=== PATIENT | female | born 1970 | race Caucasian/White ===

== ENCOUNTER 2024-12-23 15:41 | Inpatient (IN) ==
--- NOTE | 2024-12-23 16:08 | Emergency Department Note ---
Impression & Plan Pulmonary embolism, Embolism, pulmonary with infarction, Upper back pain on right side ED Provider Note HISTORY OF PRESENT ILLNESS: Patient is a 54-year-old female presenting with chest pain and shortness of breath. Patient reports that at 2 PM she acutely developed pain in her right posterior lower rib cage and developed some shortness of breath. Reports the pain now seems to radiate diffusely across her chest. It is continuous but seems to be worse when she takes a deep breath. She denies any DVT or PE history. She does report she is on hormone replacements, including estradiol, for menopause. She is not on any anticoagulation or antiplatelet therapies. Patient is from the [facility] and had her gallbladder removed at [facility] 1.5 weeks ago. She states that she is up in this area for work and was trying to drive home from [place] to [place] but her pain became too much, prompting her to stop at the [facility] emergency department. She had not taken anything for the pain prior to coming to the ER. Denies any nausea or vomiting. Denies any recent fevers. Denies any dysuria or hematuria. She locates the pain to the right lower posterior rib cage and CVA region. ROS: as above PHYSICAL EXAM: Constitutional: Patient appears in no acute distress. Patient is uncomfortable appearing in bed and continues to shift uncomfortably. HENT: Head: Normocephalic and atraumatic. Eyes: EOMI, PERRL Mouth/Throat: Mucous membranes moist. Neck: Trachea midline. Neck supple. Cardiovascular: RRR, No murmurs, rubs or gallops. Intact distal pulses. Pulmonary/Chest: No respiratory distress. Breath sounds clear and equal bilaterally. No wheezes or rales. Abdominal: Abdomen soft, no tenderness, rebound or guarding. Back: No midline spinal tenderness, no paraspinal tenderness, no CVA tenderness. Musculoskeletal: No edema, tenderness or deformity noted. Skin: Warm and dry. No rash, erythema, pallor or cyanosis Psychiatric: Appropriate mood and affect for situation. Neurological: Alert and keenly responsive. CN II-XII grossly intact, moving all extremities equally and fully. MDM: - Vitals signs showed tachypnea - History obtained via patient. History as above. - Chronic conditions affecting care: HTN - Differential diagnoses include, but are not limited to: Congestive heart failure; acute coronary syndrome; COPD/asthma exacerbation; pulmonary edema; pulmonary embolism; pneumonia; pneumothorax; viral syndrome - Order placed for continuous cardiac monitoring. At this time, monitor showed rate of 74 bpm with normal sinus rhythm, per my interpretation. - External medical records reviewed. - EKG image interpreted by myself showed normal sinus rhythm. Rate 73 BPM. QT 354. No acute ischemic changes. Noted to have significant artifact at baseline secondary to her inability to sit still. - Laboratory workup interpreted by myself showed slight leukocytosis (WBC 11.97); normal PT/INR; stable electrolytes; normal troponin - CXR image reviewed by myself is negative for pneumonia, per my interpretation. - Given patient's pinpoint pain on her right lower chest and use of hormone replacement therapy in the setting of her recent surgery, CT of the chest was obtained to rule out pulmonary embolism. - Patient initially given 4 mg IV morphine and 4 mg IV Zofran for symptomatic management. However, she is still writhing in pain. She is given 0.5 mg IV Dilaudid and taken to CT scan. - CTA chest showed acute right lower lobe pulmonary embolus with mild heart strain. Noted to have a right posterior lower lobe infarct. - CT abdomen/pelvis with IV contrast negative for acute abnormality. Noted to have moderate amounts of stool in the colon. - Heparin bolus and drip ordered and initiated. - Discussion was had with case liner about patient's case and need for admission - Hospitalist consulted for admission [facility]. I have personally spent 62 minutes of critical care time in the direct management of this patient. This includes bedside care, interpretation of diagnostic studies, and testing, discussion with consultants, patient, and family members, and other required patient management activities. This 62 minutes is in excess of all separately billable procedures. ASSESSMENT AND PLAN: Diagnosis: Pulmonary embolism; pulmonary infarct; right heart strain; right posterior upper back pain Plan: Admit Past Med/Surg History Problem List (Updated 12/23/24 @ 18:05 by Bhavya Castellon MD) Upper back pain on right side (Acute) Embolism, pulmonary with infarction (Acute) Pulmonary embolism (Acute) Social History Smoking Status: Never smoker Preferred Language: German Feels Safe at Home: Yes Results & Data (ED) Vital Signs Vital Signs - 24 hr 12/23/24 15:43 12/23/24 15:43 12/23/24 16:10 Temperature 37.1 C Temperature Source Oral Pulse Rate 80 75 Pulse Rate [Apical] Respiratory Rate 30 H Respiratory Effort / Characteristics Gasping/Agonal Gasping/Agonal Respiratory Depth Shallow Shallow Blood Pressure 130/79 Blood Pressure [Left Arm] Blood Pressure Mean 96 Blood Pressure Mean [Left Arm] Pulse Oximetry 98 Oxygen Delivery Method Room Air Sepsis Recent Fever Within 48 Hours No Sepsis New/Unexplained Change in Mental Status No Sepsis Action Taken by Nursing No Action Required 12/23/24 16:51 12/23/24 16:51 12/23/24 16:51 Temperature Temperature Source Pulse Rate Pulse Rate [Apical] 72 Respiratory Rate 18 Respiratory Effort / Characteristics Respiratory Depth Blood Pressure Blood Pressure [Left Arm] 107/60 Blood Pressure Mean Blood Pressure Mean [Left Arm] 75 Pulse Oximetry 99 99 Oxygen Delivery Method Room Air Room Air Sepsis Recent Fever Within 48 Hours Sepsis New/Unexplained Change in Mental Status Sepsis Action Taken by Nursing 12/23/24 17:49 12/23/24 17:50 Temperature Temperature Source Pulse Rate 73 Pulse Rate [Apical] Respiratory Rate 15 Respiratory Effort / Characteristics Respiratory Depth Blood Pressure 108/62 Blood Pressure [Left Arm] Blood Pressure Mean 81 Blood Pressure Mean [Left Arm] Pulse Oximetry 94 Oxygen Delivery Method Room Air Sepsis Recent Fever Within 48 Hours Sepsis New/Unexplained Change in Mental Status Sepsis Action Taken by Nursing Laboratory Data 12/23/24 16:05 12/23/24 16:05 Lab Results 12/23/24 Range/Units 16:05 WBC 11.97 H (4.8-10.8) K/ul RBC 3.79 L (4.20-5.40) M/uL Hgb 11.7 L (12.0-16.0) g/dl Hct 34.9 L (37.0-47.0) % MCV 92.1 (80.0-100.0) fL MCH 30.9 (25.0-34.0) pg MCHC 33.5 (32.0-36.0) g/dL RDW Std Deviation 44.0 (36.4-46.3) fL RDW Coeff of Demetrio 13.1 (11.5-14.5) % Plt Count 329 (130-400) K/uL MPV 9.1 L (9.4-12.4) fL Immature Gran % (Auto) 0.3 % Neut % (Auto) 75.4 % Lymph % (Auto) 16.0 % [place] % (Auto) 7.3 % Eos % (Auto) 0.7 % Baso % (Auto) 0.3 % Neut # (Auto) 9.03 H (1.40-6.50) K/uL Lymph # (Auto) 1.92 (1.20-3.40) K/uL [place] # (Auto) 0.87 H (0.11-0.59) K/uL Eos # (Auto) 0.08 (0.00-0.50) K/uL Baso # (Auto) 0.04 (0.00-0.20) K/uL Immature Gran # (Auto) 0.03 (0.01-0.20) K/uL PT 10.5 (9.0-12.0) Seconds INR 1.0 (0.9-1.1) APTT 28 (21-31) Seconds PTT Ratio 1.0 Sodium 137 (136-145) mmol/L Potassium 3.9 (3.5-5.1) mmol/L Chloride 106 (98-107) mmol/L Carbon Dioxide 25 (21-32) mmol/L Anion Gap 6 (3-11) BUN 17 (6-23) mg/dl Creatinine 0.84 (0.6-1.2) mg/dl Est Cr Clr Drug Dosing 88.4 ml/min eGFR 83.04 BUN/Creatinine Ratio 20.2 H (10-20) Glucose 115 H (70-99(Fasting)) mg/dl Calcium 9.4 (8.6-10.3) mg/dl Total Bilirubin 0.6 (0.2-1.0) mg/dl AST 20 (13-39) U/L ALT 50 (7-52) U/L Alkaline Phosphatase 110 H (34-104) U/L Troponin I High Sens < 2.3 (0-14) pg/ml B-Natriuretic Peptide 34 (0-100) pg/ml Total Protein 7.1 (6.0-8.3) gm/dl Albumin 3.9 (3.4-5.0) gm/dl Globulin 3.2 (2.5-4.0) gm/dl Albumin/Globulin Ratio 1.2 (0.9-2) Administered Medications Discontinued Medications Hydromorphone HCl (Hydromorphone Inj 0.5 Mg/0.5 Ml Syr) 0.5 mg IV NOW STA Stop: 12/23/24 16:58 Last Admin: 12/23/24 17:18 Dose: 0.5 mg Documented By: PAULINO Acetaminophen (Ofirmev) 1,000 mg in 100 mls @ 400 mls/hr IV NOW STA Stop: 12/23/24 17:09 Last Infusion: 12/23/24 17:35 Dose: Infused Documented By: Admin: 12/23/24 17:18 Dose: 400 mls/hr Documented By: PAULINO Ioversol (Optiray 320 125ml) 119 ml IV ONCE ONE Stop: 12/23/24 17:10 Last Admin: 12/23/24 17:10 Dose: 119 ml Documented By: ABBEY Morphine Sulfate (Morphine Sulfate 4 Mg/Ml 1 Ml Carp\Vial) 4 mg IV NOW STA Stop: 12/23/24 16:08 Last Admin: 12/23/24 16:10 Dose: 4 mg Documented By: DAYANA Ondansetron HCl (Ondansetron Inj 2 Mg/Ml 2 Ml Vial) 4 mg IV NOW STA Stop: 12/23/24 16:21 Last Admin: 12/23/24 16:50 Dose: 4 mg Documented By: PAULINO Imaging Data Radiologist's Impression: Chest X-Ray 12/23/24 15:46 Clinical History: Chest pain Technique: A frontal view of the chest was obtained Findings: There are no confluent pulmonary infiltrates. The heart size is within normal limits. No pleural effusion or pneumothorax is seen. There is no definite pulmonary nodule. There is a cervical fusion Impression: No active disease Electronically signed by Marcelino Ruth 12-23-2024 4:38 PM Abdomen/Pelvis CT 12/23/24 16:20 EXAM: CT Abdomen and Pelvis With Intravenous Contrast INDICATION: Postsurgical lung pain and shortness of breath. TECHNIQUE: Axial computed tomography images of the abdomen and pelvis with intravenous contrast. Sagittal and coronal reformatted images were created and reviewed. This CT exam was performed using one or more of the following dose reduction techniques: automated exposure control, adjustment of the mA and/or kV according to patient size, and/or use of iterative reconstruction technique. CONTRAST: 119ml of Optiray 320 was administered intravenously. COMPARISON: No relevant prior studies available. FINDINGS: Limitations: None. Lung bases: No abnormality noted. Pleural space: Groundglass opacity noted in the posterior right costophrenic sulcus. Heart: No abnormality noted. Mediastinum: No abnormality noted. ABDOMEN: Liver: Normal size and contour. Hypodense typical of steatosis. No mass or ductal dilation. Gallbladder and bile ducts: Cholecystectomy. No ductal dilation or stone noted. Simple there is trace intrahepatic biliary dilatation likely within normal limits postcholecystectomy. Smooth hepatic contour. No mass. Bilateral renal cysts. No follow-up of these simple cysts is necessary. Pancreas: Homogeneous enhancement. No mass, inflammation or ductal dilation. Spleen: No significant abnormality noted. Adrenals: No significant abnormality noted. Kidneys and ureters: Normal enhancement. No mass, hydronephrosis or visualized stone. Stomach and bowel: Moderate amounts of stool scattered throughout the colon. The right colon is patulous with the cecum noted in the left midabdomen. Normal position of the duodenal jejunal junction. Postoperative changes of the stomach. Staple lines are well-defined without adjacent inflammation or fluid. No obstruction. No inflammatory process or thickening noted. PELVIS: Appendix: No findings to suggest acute appendicitis. Bladder: No filling defects to suggest mass or large stone. No inflammation. Reproductive: Unenlarged fibroid uterus. ABDOMEN and PELVIS: Intraperitoneal space: No free air. No significant fluid collection. Bones/joints: Degenerative changes noted throughout the spine. No acute osseous abnormality seen. Soft tissues: No significant abnormality noted. Vasculature: No abdominal aortic aneurysm. Lymph nodes: No pathologically enlarged lymph nodes. IMPRESSION: 1. No acute abnormality in the abdomen or pelvis. 2. Moderate amounts of stool in the patulous colon with the right colon a in the mid abdomen and the cecum to the left of midline. 3. Right posterior costophrenic basilar infiltrate could reflect infarct given the patient has a right lower lobe pulmonary embolus. Infectious pneumonia not excluded. 4. Uterine fibroids. ACT 112: N/A Electronically signed by Gisselle Peralta 12-23-2024 5:37 PM Chest CTA 12/23/24 16:20 EXAM: CT Angiography Chest With Intravenous Contrast INDICATION: Recent surgery. Shortness of breath. Right lung pain. TECHNIQUE: Axial computed tomographic angiography images of the chest with intravenous contrast. Sagittal and coronal reformatted images were created and reviewed. This CT exam was performed using one or more of the following dose reduction techniques: automated exposure control, adjustment of the mA and/or kV according to patient size, and/or use of iterative reconstruction technique. MIP reconstructed images were created and reviewed. CONTRAST: 119ml of Optiray 320 was administered intravenously. COMPARISON: No relevant prior studies available. FINDINGS: Pulmonary arteries: There is an acute pulmonary embolus in a segmental medial right lower lobe branch. No saddle embolus. Aorta: No acute change noted. No thoracic aortic aneurysm or dissection. Lungs and pleural spaces: There is groundglass and consolidative infiltrate in the right posterior costophrenic sulcus. No significant effusion. No pneumothorax. Heart: Mild cardiomegaly with slight dilatation of the right ventricle. No pericardial effusion. Bones/joints: No acute or atypical chronic changes. Soft tissues: No abnormality noted. Lymph nodes: No abnormality noted. No enlarged lymph nodes. IMPRESSION: 1. The study is positive for acute right lower lobe pulmonary embolus. Mild right heart strain. 2. Right posterior lower lobe infarct or pneumonia not excluded. ACT 112: N/A Electronically signed by Gisselle Peralta 12-23-2024 5:31 PM Discharge Plan Visit Data Chief Complaint: Chest Pain Stated Complaint: CHEST PPAIN, SOB, BACK PAIN ED Provider: Bhavya Castellon Discharge Problem: Pulmonary embolism, Embolism, pulmonary with infarction, Upper back pain on right side Forms Stand Alone Forms: [facility] Referrals Referrals: PCP,NO [Physician] -
[2024-12-23] MEDS: MoRPHine SULFATE 4 MG/ML 1 ML CARP\\VIAL IV STA (16:10)
[2024-12-23 16:22] LABS: Basophils # (auto) 0.04 K/uL (0.00-0.20); Basophils % (auto) 0.3 %; Eosinophils # (auto) 0.08 K/uL (0.00-0.50); Eosinophils % (auto) 0.7 %; Hematocrit (blood only) 34.9 % (37.0-47.0); Hemoglobin 11.7 g/dl (12.0-16.0); Immature Granulocytes # (auto) 0.03 K/uL (0.01-0.20); Immature Granulocytes % (auto) 0.3 %; Lymphocytes # (auto) 1.92 K/uL (1.20-3.40); Mean Corpuscular Hemoglobin 30.9 pg (25.0-34.0); Mean Corpuscular Hgb Conc 33.5 g/dL (32.0-36.0); Mean Corpuscular Volume 92.1 fL (80.0-100.0); Mean Platelet Volume 9.1 fL (9.4-12.4); Monocytes # (auto) 0.87 K/uL (0.11-0.59); Monocytes % (auto) 7.3 %; Neutrophils # (auto) 9.03 K/uL (1.40-6.50); Neutrophils % (auto) 75.4 %; Platelet Count 329 K/uL (130-400); RDW Coefficient of Variation 13.1 % (11.5-14.5); Red Blood Count 3.79 M/uL (4.20-5.40); White Blood Count 11.97 K/ul (4.8-10.8)
[2024-12-23 16:35] LABS: Alanine Aminotransferase 50 U/L (7-52); Albumin Globulin Ratio 1.2 (0.9-2); Albumin Level 3.9 gm/dl (3.4-5.0); Alkaline Phosphatase 110 U/L (34-104); Anion Gap 6 (3-11); Aspartate Aminotransferase 20 U/L (13-39); BUN Creatinine Ratio 20.2 (10-20); Bilirubin,Total 0.6 mg/dl (0.2-1.0); Blood Urea Nitrogen 17 mg/dl (6-23); Calcium 9.4 mg/dl (8.6-10.3); Carbon Dioxide 25 mmol/L (21-32); Chloride 106 mmol/L (98-107); Creatinine Clr Calc Pharmacy 88.4 ml/min; Globulin 3.2 gm/dl (2.5-4.0); Glucose 115 mg/dl (70-99(Fasting)); Potassium 3.9 mmol/L (3.5-5.1); Sodium 137 mmol/L (136-145); Total Protein 7.1 gm/dl (6.0-8.3)
--- NOTE | 2024-12-23 16:40 | XRay Report ---
Clinical History: Chest pain Technique: A frontal view of the chest was obtained Findings: There are no confluent pulmonary infiltrates. The heart size is within normal limits. No pleural effusion or pneumothorax is seen. There is no definite pulmonary nodule. There is a cervical fusion Impression: No active disease Electronically signed by Marcelino Ruth 12-23-2024 4:38 PM
[2024-12-23 16:41] LABS: Troponin I High Sensitivity < 2.3 pg/ml (0-14)
[2024-12-23 16:46] LABS: Partial Thromboplastin Time 28 Seconds (21-31); Prothrombin Time 10.5 Seconds (9.0-12.0)
[2024-12-23] MEDS: ONDANSETRON INJ 2 MG/ML 2 ML VIAL IV STA (16:50)
[2024-12-23] MEDS: OPTIRAY 320 125ml IV ONE (17:10)
[2024-12-23] MEDS: HYDROmorphone INJ 0.5 MG/0.5 ML SYR IV STA (17:18)
[2024-12-23] MEDS: ACETAMINOPHEN 1,000 MG/100 ML VIAL IV STA (17:18)
--- NOTE | 2024-12-23 17:32 | CT Scan Report ---
EXAM: CT Angiography Chest With Intravenous Contrast INDICATION: Recent surgery. Shortness of breath. Right lung pain. TECHNIQUE: Axial computed tomographic angiography images of the chest with intravenous contrast. Sagittal and coronal reformatted images were created and reviewed. This CT exam was performed using one or more of the following dose reduction techniques: automated exposure control, adjustment of the mA and/or kV according to patient size, and/or use of iterative reconstruction technique. MIP reconstructed images were created and reviewed. CONTRAST: 119ml of Optiray 320 was administered intravenously. COMPARISON: No relevant prior studies available. FINDINGS: Pulmonary arteries: There is an acute pulmonary embolus in a segmental medial right lower lobe branch. No saddle embolus. Aorta: No acute change noted. No thoracic aortic aneurysm or dissection. Lungs and pleural spaces: There is groundglass and consolidative infiltrate in the right posterior costophrenic sulcus. No significant effusion. No pneumothorax. Heart: Mild cardiomegaly with slight dilatation of the right ventricle. No pericardial effusion. Bones/joints: No acute or atypical chronic changes. Soft tissues: No abnormality noted. Lymph nodes: No abnormality noted. No enlarged lymph nodes. IMPRESSION: 1. The study is positive for acute right lower lobe pulmonary embolus. Mild right heart strain. 2. Right posterior lower lobe infarct or pneumonia not excluded. ACT 112: N/A Electronically signed by Gisselle Peralta 12-23-2024 5:31 PM
--- NOTE | 2024-12-23 17:40 | CT Scan Report ---
EXAM: CT Abdomen and Pelvis With Intravenous Contrast INDICATION: Postsurgical lung pain and shortness of breath. TECHNIQUE: Axial computed tomography images of the abdomen and pelvis with intravenous contrast. Sagittal and coronal reformatted images were created and reviewed. This CT exam was performed using one or more of the following dose reduction techniques: automated exposure control, adjustment of the mA and/or kV according to patient size, and/or use of iterative reconstruction technique. CONTRAST: 119ml of Optiray 320 was administered intravenously. COMPARISON: No relevant prior studies available. FINDINGS: Limitations: None. Lung bases: No abnormality noted. Pleural space: Groundglass opacity noted in the posterior right costophrenic sulcus. Heart: No abnormality noted. Mediastinum: No abnormality noted. ABDOMEN: Liver: Normal size and contour. Hypodense typical of steatosis. No mass or ductal dilation. Gallbladder and bile ducts: Cholecystectomy. No ductal dilation or stone noted. Simple there is trace intrahepatic biliary dilatation likely within normal limits postcholecystectomy. Smooth hepatic contour. No mass. Bilateral renal cysts. No follow-up of these simple cysts is necessary. Pancreas: Homogeneous enhancement. No mass, inflammation or ductal dilation. Spleen: No significant abnormality noted. Adrenals: No significant abnormality noted. Kidneys and ureters: Normal enhancement. No mass, hydronephrosis or visualized stone. Stomach and bowel: Moderate amounts of stool scattered throughout the colon. The right colon is patulous with the cecum noted in the left midabdomen. Normal position of the duodenal jejunal junction. Postoperative changes of the stomach. Staple lines are well-defined without adjacent inflammation or fluid. No obstruction. No inflammatory process or thickening noted. PELVIS: Appendix: No findings to suggest acute appendicitis. Bladder: No filling defects to suggest mass or large stone. No inflammation. Reproductive: Unenlarged fibroid uterus. ABDOMEN and PELVIS: Intraperitoneal space: No free air. No significant fluid collection. Bones/joints: Degenerative changes noted throughout the spine. No acute osseous abnormality seen. Soft tissues: No significant abnormality noted. Vasculature: No abdominal aortic aneurysm. Lymph nodes: No pathologically enlarged lymph nodes. IMPRESSION: 1. No acute abnormality in the abdomen or pelvis. 2. Moderate amounts of stool in the patulous colon with the right colon a in the mid abdomen and the cecum to the left of midline. 3. Right posterior costophrenic basilar infiltrate could reflect infarct given the patient has a right lower lobe pulmonary embolus. Infectious pneumonia not excluded. 4. Uterine fibroids. ACT 112: N/A Electronically signed by Gisselle Peralta 12-23-2024 5:37 PM
[2024-12-23] MEDS ORDERED: Heparin IV Adult Wt-Based Standard w/ INITIAL Bolus Protocol IV STA (17:56)
--- NOTE | 2024-12-23 18:20 | History & Physical Report ---
Date of Service December 23, 2024 Assessment & Plan (1) Embolism, pulmonary with infarction: Plan: Multiple risk factors for PE - patient with recent cholecystectomy and on HRT with estradiol and medroxyprogesterone. CTA PE protocol with signs of right heart strain. Started heparin gtt. ECHO ordered. Likely can transition to DOAC 12/24. Tylenol scheduled, Dilaudid 0.5 mg Q3H PRN Zofran PRN for nausea, QTC 389 on admit ECHO ordered heparin gtt for now, plan for transition to DOAC pending ECHO (2) Anxiety: Plan: Baseline anxiety on Prozac and Buspar for maintenance. Hydroxyzine 50 mg PRN for anxiety. Doxepin 10 mg PRN for sleep. Ordered home meds. (3) Postmenopausal HRT (hormone replacement therapy): Plan: Will likely need to d/c HRT. (4) S/P cholecystectomy: Plan: Incisions c/d/i. Patient with signs of constipation of CT A&P. Schedule MiraLax. (5) Leukocytosis: Plan: Likely reactive. Will trend. Plan Code status: full DVT ppx: heparin gtt FENGI: regular diet Dispo: PCU/Tele History of Present Illness Chief Complaint: CP Primary Care Provider: LIZZYMIKE LEON 54 y/o female on HRT with a PMHx of anxiety presented with chest pain. Patient was driving from [place] to [employer] when she experienced acute onset severe chest pain. 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 She also had significant shortness of breath and nausea. Symptoms have improved with medication, but it is still present. Still having significant pain with deep breaths. Patient had her gallbladder removed recently as well. No leg swelling or pain in the legs. ED work up significant for right lower lobe PE and mild heart strain. Hospitalist team consulted for admission. Allergies Allergy/AdvReac Type Severity Reaction Status Date / Time azithromycin Allergy Severe Abdominal Unverified 12/23/24 18:43 Pain Sulfa (Sulfonamide Allergy Severe Abdominal Unverified 12/23/24 18:43 Antibiotics) Pain codeine AdvReac Severe Anxiety Unverified 12/23/24 18:43 and Paranoid Home Medications Medication Instructions Recorded Confirmed Type acetaminophen 500 mg tablet 500 mg PO Q6H PRN Pain 12/23/24 12/23/24 History buspirone 5 mg tablet 2.5 mg PO BID 12/23/24 12/23/24 History cetirizine 10 mg tablet (Zyrtec) 10 mg PO DAILY 12/23/24 12/23/24 History estradiol 0.5 mg tablet 0.5 mg PO HS 12/23/24 12/23/24 History fluoxetine 40 mg capsule 40 mg PO QAM 12/23/24 12/23/24 History medroxyprogesterone 2.5 mg tablet 2.5 mg PO HS 12/23/24 12/23/24 History multivitamin 1 tab PO DAILY 12/23/24 12/23/24 History Past Med/Surg History Problem List (Updated 12/23/24 @ 19:13 by Alba Glover MD) Leukocytosis Anxiety S/P cholecystectomy Postmenopausal HRT (hormone replacement therapy) Upper back pain on right side (Acute) Embolism, pulmonary with infarction (Acute) Pulmonary embolism (Acute) Social History Smoking Status: Never smoker Preferred Language: Tongan Feels Safe at Home: Yes Review of Systems 2 Review of Systems: See HPI Physical Exam 2 Physical Exam: Gen: appears to be in pain, but NAD HEENT: AT NC MMM Resp: CTAB no wheezing, pain present with inspiration, no increased work of breathing CV: RRR no m/r/g clinically well perfused Abd: soft, non-distended, incisions c/d/i MSK: no obvious deformities Skin: no rashes or bruising Neuro: alert and oriented Psych: appropriate mood and affect Results & Data Results & Data Vital Signs (Past 12 Hours) Vital Signs Temp Pulse Pulse Resp BP BP Pulse Ox 12/23/24 17:50 73 15 94 12/23/24 17:49 108/62 12/23/24 16:51 99 12/23/24 16:51 72 18 107/60 99 12/23/24 16:51 12/23/24 16:10 75 12/23/24 15:43 37.1 C 80 30 H 130/79 98 O2 Del Method 12/23/24 17:50 Room Air 12/23/24 17:49 12/23/24 16:51 Room Air 12/23/24 16:51 12/23/24 16:51 Room Air 12/23/24 16:10 12/23/24 15:43 Room Air Laboratory Results 12/23/24 16:05 12/23/24 16:05 Diagnostic Findings Chest X-Ray 12/23/24 15:46 Findings: There are no confluent pulmonary infiltrates. The heart size is within normal limits. No pleural effusion or pneumothorax is seen. There is no definite pulmonary nodule. There is a cervical fusion Impression: No active disease Abdomen/Pelvis CT 12/23/24 16:20 FINDINGS: Limitations: None. Lung bases: No abnormality noted. Pleural space: Ground glass opacity noted in the posterior right costophrenic sulcus. Heart: No abnormality noted. Mediastinum: No abnormality noted. ABDOMEN: Liver: Normal size and contour. Hypodense typical of steatosis. No mass or ductal dilation. Gallbladder and bile ducts: Cholecystectomy. No ductal dilation or stone noted. Simple there is trace intrahepatic biliary dilatation likely within normal limits postcholecystectomy. Smooth hepatic contour. No mass. Bilateral renal cysts. No follow-up of these simple cysts is necessary. Pancreas: Homogeneous enhancement. No mass, inflammation or ductal dilation. Spleen: No significant abnormality noted. Adrenals: No significant abnormality noted. Kidneys and ureters: Normal enhancement. No mass, hydronephrosis or visualized stone. Stomach and bowel: Moderate amounts of stool scattered throughout the colon. The right colon is patulous with the cecum noted in the left midabdomen. Normal position of the duodenal jejunal junction. Postoperative changes of the stomach. Staple lines are well-defined without adjacent inflammation or fluid. No obstruction. No inflammatory process or thickening noted. PELVIS: Appendix: No findings to suggest acute appendicitis. Bladder: No filling defects to suggest mass or large stone. No inflammation. Reproductive: Un-enlarged fibroid uterus. ABDOMEN and PELVIS: Intraperitoneal space: No free air. No significant fluid collection. Bones/joints: Degenerative changes noted throughout the spine. No acute osseous abnormality seen. Soft tissues: No significant abnormality noted. Vasculature: No abdominal aortic aneurysm. Lymph nodes: No pathologically enlarged lymph nodes. IMPRESSION: 1. No acute abnormality in the abdomen or pelvis. 2. Moderate amounts of stool in the patulous colon with the right colon a in the mid abdomen and the cecum to the left of midline. 3. Right posterior costophrenic basilar infiltrate could reflect infarct given the patient has a right lower lobe pulmonary embolus. Infectious pneumonia not excluded. 4. Uterine fibroids. Chest CTA 12/23/24 16:20 FINDINGS: Pulmonary arteries: There is an acute pulmonary embolus in a segmental medial right lower lobe branch. No saddle embolus. Aorta: No acute change noted. No thoracic aortic aneurysm or dissection. Lungs and pleural spaces: There is ground glass and consolidative infiltrate in the right posterior costophrenic sulcus. No significant effusion. No pneumothorax. Heart: Mild cardiomegaly with slight dilatation of the right ventricle. No pericardial effusion. Bones/joints: No acute or atypical chronic changes. Soft tissues: No abnormality noted. Lymph nodes: No abnormality noted. No enlarged lymph nodes. IMPRESSION: 1. The study is positive for acute right lower lobe pulmonary embolus. Mild right heart strain. 2. Right posterior lower lobe infarct or pneumonia not excluded. Supervising Physician Co-Signing Physician Notes I personally examined the patient and verified all jama points of history and exam, discussed case, and agree with decision making with Dr Glover Discussed overall situation. Patient expressed good understanding. On HRTPCP was trying to wean, but then she needed to resume. Had surgery about a week and a half ago. Traveling for work. Painfelt like she was having a heart attack, came to the ERfound to have pulmonary embolus. Vitals noted, in general she is pleasant appropriately anxious to the situation but no physical distress. HEENT normocephalic atraumatic mucous membranes moist. Breathing unlabored no accessory muscle use good effort. Skin without rashes pallor or icterus. Neuro without focal deficits. Labs and diagnostics noted. Pulmonary embolusanticoagulatediscussed with the admitting resident would be okay to initiate Eliquis. Discussed with patient seems to be a combination of provoking circumstances between HRT and surgeryduration of treatment likely can be 3-6 months given reversible provoking circumstancesthe main question will be her symptomatic worsening weaning/discontinuing HRT versus continuing the HRT but requiring aggressive DVT prophylaxis in future risky situations. Obviously this will be ongoing discussion with her PCP, the "easy answer" would obviously be discontinuation of the HRT. Dizziness/lightheadednessseems to predominantly be positional/orthostatic by historydiscussed p.o. fluid intake, she agrees she probably comes up short. Discussed this in combination with venous stasis is a very plausible reason for her to have the symptoms. Vitals are stablehopefully home DOAC tomorrow with close PCP follow up Resident Activity Tracking Resident Involvement: Resident Care Provided Care Provided: [facility]
[2024-12-23] MEDS ORDERED: hydrOXYzine HCl 25 MG TAB PO PRN (19:00)
[2024-12-23] MEDS: HEPARIN SOD (PORCINE) 1000 UNIT/ML IV ONE (19:39)
--- NOTE | 2024-12-23 20:17 | Billing Data ---
Date of Service December 23, 2024 Coding Level of Care Code 77608 INT INP/OBS CARE
[2024-12-23] MEDS ORDERED: ALUMINUM/MAGNESIUM SUSP 30 ML UDC PO PRN (20:21)
[2024-12-23] MEDS ORDERED: ONDANSETRON INJ 2 MG/ML 2 ML VIAL IV PRN (20:21)
[2024-12-23] MEDS: HEPARIN 25000 UNIT/500 ML D5W 25,000 UNITS/500 ML BAG IV SCH (20:30)
[2024-12-23] MEDS: HYDROmorphone INJ 0.5 MG/0.5 ML SYR IV PRN (20:50)
[2024-12-23] MEDS: busPIRone 5 MG TAB PO SCH (21:08)
--- NOTE | 2024-12-23 23:22 | Electrocardiogram Report ---
Test Reason : Blood Pressure : */* mmHG Vent. Rate : 73 BPM Atrial Rate : 76 BPM P-R Int : * ms QRS Dur : 64 ms QT Int : 354 ms P-R-T Axes : * 39 24 degrees QTcB Int : 389 ms Poor data quality, interpretation may be adversely affected Normal sinus rhythm No previous ECGs available Confirmed by Azael Figueroa ([id number]) on 12/23/2024 11:22:03 PM Referred By: Confirmed By: Azael Figueroa
[2024-12-24] MEDS: ACETAMINOPHEN 500 MG TAB PO SCH (00:11)
[2024-12-24 03:02] LABS: Hematocrit (blood only) 31.9 % (37.0-47.0); Hemoglobin 10.7 g/dl (12.0-16.0); Mean Corpuscular Hemoglobin 31.4 pg (25.0-34.0); Mean Corpuscular Hgb Conc 33.5 g/dL (32.0-36.0); Mean Corpuscular Volume 93.5 fL (80.0-100.0); Mean Platelet Volume 9.3 fL (9.4-12.4); Platelet Count 261 K/uL (130-400); RDW Coefficient of Variation 13.1 % (11.5-14.5); RDW Standard Deviation 45.2 fL (36.4-46.3); Red Blood Count 3.41 M/uL (4.20-5.40); White Blood Count 8.54 K/ul (4.8-10.8)
[2024-12-24 03:14] LABS: Albumin Globulin Ratio 1.2 (0.9-2); Albumin Level 3.3 gm/dl (3.4-5.0); BUN Creatinine Ratio 15.9 (10-20); Bilirubin,Total 0.7 mg/dl (0.2-1.0); Calcium 8.5 mg/dl (8.6-10.3); Creatinine Clr Calc Pharmacy 117.2 ml/min; Globulin 2.8 gm/dl (2.5-4.0); Potassium 3.7 mmol/L (3.5-5.1); Total Protein 6.1 gm/dl (6.0-8.3)
[2024-12-24 03:34] LABS: ANTI-Xa, UFH(UnfractionatedHep 0.76 IU/ml (0.3-0.7)
[2024-12-24] MEDS: CETIRIZINE HCL 10 MG TABLET PO SCH (08:20)
[2024-12-24] MEDS: FLUoxetine HCL 20 MG CAP PO SCH (08:20)
[2024-12-24] MEDS: POLYETHYLENE (MIRALAX) 17 GM PACK PO SCH (08:25)
[2024-12-24] MEDS ORDERED: INFLUENZA VACC TS2024-25(6m+)/PF (IIV3) 0.5mL Syr IM ONE (09:00)
[2024-12-24 10:16] LABS: ANTI-Xa, UFH(UnfractionatedHep 0.54 IU/ml (0.3-0.7)
--- NOTE | 2024-12-24 11:04 | Hospitalist Progress Note ---
Date of Service December 24, 2024 Assessment & Plan (1) Embolism, pulmonary with infarction: Plan: Acute provoked pulmonary embolism Multiple risk factors for PE patient with recent cholecystectomy and on HRT with estradiol and medroxyprogesterone. CTA PE protocol with signs of right heart strain. Started heparin gtt. ECHO ordered, result pending Patient still experiencing some chest pain and pressure, will continue heparin infusion for now Continue pain management (2) Anxiety: Plan: Baseline anxiety on Prozac and Buspar for maintenance. Hydroxyzine 50 mg PRN for anxiety. Doxepin 10 mg PRN for sleep. Ordered home meds. (3) Postmenopausal HRT (hormone replacement therapy): Plan: Will likely need to d/c HRT. (4) S/P cholecystectomy: Plan: Incisions c/d/i. Patient with signs of constipation of CT A&P. Schedule MiraLax. (5) Leukocytosis: Plan: Likely reactive. Will trend. Plan Code status: full DVT ppx: heparin gtt FENGI: regular diet Dispo: PCU/Tele Admission and Anticipated Discharge Date Admission Date: December 23, 2024 Subjective Patient seen and examined, still experiencing some chest pressure Review of Systems Review of Systems: All systems reviewed are negative, apart from the ones contained in the history. Physical Exam Physical Exam: The patient is awake, alert and oriented 3, well developed and well nourished, normocephalic and atraumatic, lying in bed and in no acute distress. HEENT--PERRL, EOMI, mucous membranes and oropharynx mildly dry Neck--supple. No JVD. No bruits. Thyroid normal, trachea midline, no adenopathy. Heart--normal S1 and S2. No murmurs, rubs or gallops. Lungs--clear bilaterally, no respiratory distress, no accessory muscle use. Abdomen--normal bowel sounds and soft. Extremities--no cyanosis or clubbing. No edema. Dermatologic--normal skin turgor, normal color, no abnormal lymph nodes, no rash. Neurologic--cranial nerves II through XII grossly intact. Rheumatologic--normal range of motion. Psychiatric--normal affect. Results & Data Results & Data Vital Signs (Past 12 Hours) Vital Signs Temp Pulse Pulse Resp BP Pulse Ox O2 Del Method 12/24/24 09:12 97.5 F L 64 17 90/58 L 95 Room Air 12/24/24 08:01 54 L 12/24/24 04:37 97.9 F 60 18 99/65 L 95 Room Air 12/24/24 00:15 98.1 F 60 16 105/72 97 Room Air PG Care Time/CCT Total # of Minutes Spent Total Time Spent with Patient: Total time spent is greater than 50% in coordination of care (as documented) at patient's floor/unit and/or counseling patient: Coding Level of Care Code 19715 SUB INP/OBS CARE 2/35MIN Diagnoses Embolism, pulmonary with infarction I26.99 Anxiety F41.9 Postmenopausal HRT (hormone replacement therapy) Z79.890 S/P cholecystectomy Z90.49 Leukocytosis D72.829 Time Spent (min) 35
--- NOTE | 2024-12-24 16:14 | XCELERA ---
[id number]
[2024-12-24 16:42] LABS: ANTI-Xa, UFH(UnfractionatedHep 0.52 IU/ml (0.3-0.7)
[2024-12-24 18:28] LABS: Appearance Urine Clear (Clear); Bilirubin Urine Negative (Negative); Blood Urine Negative (Negative); Color Urine Yellow; Glucose Urine UA Negative (Negative); Ketones Urine Negative (Negative); Leukocyte Esterase Urine Negative (Negative); Nitrite Urine Negative (Negative); Protein Urine Negative (Negative); Specific Gravity Urine 1.011 (1.000-1.030); Urobilinogen Urine Negative (Negative); pH Urine 5.5 (4.5-7.5)
[2024-12-25 06:36] LABS: ANTI-Xa, UFH(UnfractionatedHep 0.49 IU/ml (0.3-0.7)
--- NOTE | 2024-12-25 09:36 | Hospitalist Progress Note ---
Date of Service December 25, 2024 Assessment & Plan (1) Embolism, pulmonary with infarction: Plan: Acute provoked pulmonary embolism Multiple risk factors for PE patient with recent cholecystectomy and on HRT with estradiol and medroxyprogesterone. CTA PE protocol with signs of right heart strain. Started heparin gtt. ECHO Shows ejection fraction 50 to 55%, no wall motion abnormality no heart strain Patient still experiencing some chest pain and pressure, will Transition to p.o. Eliquis 10 mg twice daily Continue pain management (2) Anxiety: Plan: Baseline anxiety on Prozac and Buspar for maintenance. Hydroxyzine 50 mg PRN for anxiety. Doxepin 10 mg PRN for sleep. Ordered home meds. (3) Postmenopausal HRT (hormone replacement therapy): Plan: Will likely need to d/c HRT. (4) S/P cholecystectomy: Plan: Incisions c/d/i. Patient with signs of constipation of CT A&P. Schedule MiraLax. (5) Leukocytosis: Plan: Likely reactive. Will trend. Plan Code status: full DVT ppx: heparin gtt FENGI: regular diet Dispo: Hopefully discharge later today Admission and Anticipated Discharge Date Admission Date: December 23, 2024 Subjective Patient seen and examined, still experiencing some chest pressure, Patient encouraged to ambulate Review of Systems Review of Systems: All systems reviewed are negative, apart from the ones contained in the history. Physical Exam Physical Exam: The patient is awake, alert and oriented 3, well developed and well nourished, normocephalic and atraumatic, lying in bed and in no acute distress. HEENT--PERRL, EOMI, mucous membranes and oropharynx mildly dry Neck--supple. No JVD. No bruits. Thyroid normal, trachea midline, no adenopathy. Heart--normal S1 and S2. No murmurs, rubs or gallops. Lungs--clear bilaterally, no respiratory distress, no accessory muscle use. Abdomen--normal bowel sounds and soft. Extremities--no cyanosis or clubbing. No edema. Dermatologic--normal skin turgor, normal color, no abnormal lymph nodes, no rash. Neurologic--cranial nerves II through XII grossly intact. Rheumatologic--normal range of motion. Psychiatric--normal affect. Results & Data Results & Data Vital Signs (Past 12 Hours) Vital Signs Temp Pulse Pulse Resp BP Pulse Ox O2 Del Method 12/25/24 08:06 97.9 F 54 L 18 116/76 96 Room Air 12/25/24 03:39 54 L 112/78 12/25/24 03:16 98.1 F 54 L 18 91/60 L 95 Room Air 12/24/24 23:20 98.1 F 56 L 16 97/61 L 94 Room Air 12/24/24 22:00 55 L PG Care Time/CCT Total # of Minutes Spent Total Time Spent with Patient: Total time spent is greater than 50% in coordination of care (as documented) at patient's floor/unit and/or counseling patient: Coding Level of Care Code 42208 SUB INP/OBS CARE 2/35MIN Diagnoses Embolism, pulmonary with infarction I26.99 Anxiety F41.9 Postmenopausal HRT (hormone replacement therapy) Z79.890 S/P cholecystectomy Z90.49 Leukocytosis D72.829 Time Spent (min) 35
[2024-12-25] MEDS: APIXABAN 5 MG TABLET PO SCH (10:23)
[2024-12-25] MEDS: MAGNESIUM HYDROXIDE SUSP 30 ML UDC PO PRN (16:55)
[2024-12-25] MEDS: DOXEPIN HCL 10 MG CAPSULE PO PRN (20:51)
--- NOTE | 2024-12-26 05:58 | Electrocardiogram Report ---
Test Reason : Blood Pressure : */* mmHG Vent. Rate : 53 BPM Atrial Rate : 53 BPM P-R Int : 166 ms QRS Dur : 78 ms QT Int : 430 ms P-R-T Axes : 66 53 48 degrees QTcB Int : 403 ms Sinus bradycardia Otherwise normal ECG When compared with ECG of 23-Dec-2024 16:00, No significant change was found Confirmed by Azael Figueroa ([id number]) on 12/26/2024 5:57:31 AM Referred By: REFERRED SELF Confirmed By: Azael Figueroa
[2024-12-26 06:22] LABS: Hematocrit (blood only) 34.1 % (37.0-47.0); Hemoglobin 11.3 g/dl (12.0-16.0); Mean Corpuscular Hemoglobin 31.3 pg (25.0-34.0); Mean Corpuscular Hgb Conc 33.1 g/dL (32.0-36.0); Mean Corpuscular Volume 94.5 fL (80.0-100.0); Platelet Count 308 K/uL (130-400); RDW Coefficient of Variation 13.1 % (11.5-14.5); RDW Standard Deviation 45.1 fL (36.4-46.3); Red Blood Count 3.61 M/uL (4.20-5.40); White Blood Count 6.13 K/ul (4.8-10.8)
[2024-12-26 06:32] LABS: Calcium 8.9 mg/dl (8.6-10.3); Creatinine Clr Calc Pharmacy 102.8 ml/min; Potassium 4.1 mmol/L (3.5-5.1)
[2024-12-26 07:00] LABS: ANTI-Xa, UFH(UnfractionatedHep 1.35 IU/ml (0.3-0.7)
--- NOTE | 2024-12-26 10:16 | Discharge Summary ---
Date of Service December 26, 2024 Admission HPI Per Admitting Provider 54 y/o female on HRT with a PMHx of anxiety presented with chest pain. Patient was driving from [employer] to [place] when she experienced acute onset severe chest pain. 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 She also had significant shortness of breath and nausea. Symptoms have improved with medication, but it is still present. Still having significant pain with deep breaths. Patient had her gallbladder removed recently as well. No leg swelling or pain in the legs. ED work up significant for right lower lobe PE and mild heart strain. Hospitalist team consulted for admission. Admission Exam (Per Admitting) Constitutional The patient is awake, alert and oriented 3, well developed and well nourished, normocephalic and atraumatic, lying in bed and in no acute distress. HEENT--PERRL, EOMI, mucous membranes and oropharynx mildly dry Neck--supple. No JVD. No bruits. Thyroid normal, trachea midline, no adenopathy. Heart--normal S1 and S2. No murmurs, rubs or gallops. Lungs--clear bilaterally, no respiratory distress, no accessory muscle use. Abdomen--normal bowel sounds and soft. Extremities--no cyanosis or clubbing. No edema. Dermatologic--normal skin turgor, normal color, no abnormal lymph nodes, no rash. Neurologic--cranial nerves II through XII grossly intact. Rheumatologic--normal range of motion. Psychiatric--normal affect. Discharge Data Consultations 12/23/24 18:01 ED Decision to Admit Stat Hospital Course (1) Embolism, pulmonary with infarction: Acute provoked pulmonary embolism Multiple risk factors for PE patient with recent cholecystectomy and on HRT with estradiol and medroxyprogesterone. CTA PE protocol with signs of right heart strain. Started heparin gtt. ECHO Shows ejection fraction 50 to 55%, no wall motion abnormality no heart strain Chest pressure has resolved, will discharge on p.o. Eliquis 10 mg twice daily for 6 more days, then subsequently 5mg BID Discontinue Hormone replacement therapy (2) Anxiety: Baseline anxiety on Prozac and Buspar for maintenance. Hydroxyzine 50 mg PRN for anxiety. Doxepin 10 mg PRN for sleep. Ordered home meds. (3) Postmenopausal HRT (hormone replacement therapy): Will likely need to d/c HRT. (4) S/P cholecystectomy: Incisions c/d/i. Patient with signs of constipation of CT A&P. Schedule MiraLax. (5) Leukocytosis: Likely reactive. Will trend. Plan Code status: full DVT ppx: heparin gtt FENGI: regular diet Dispo: discharge later today Coding Level of Care Code 64264 INP/OBS DISCH >30 MIN Diagnoses Embolism, pulmonary with infarction I26.99 Anxiety F41.9 Postmenopausal HRT (hormone replacement therapy) Z79.890 S/P cholecystectomy Z90.49 Leukocytosis D72.829 Time Spent (min) 35
== END 2024-12-26 10:20 | disposition home or self-care (01) | DRG 176 ==
LOC: ED 15:41 → 4W 18:53 → SUATTDRO 18:53 → 4W 19:31